=== PATIENT | male | born 1995 | race Caucasian/White ===

== ENCOUNTER 2016-05-23 11:24 | Emergency (ER) | payer OTHER ==
[~2016-05-23] VITALS: Ht 165.1 cm; Wt 100.0 kg
[2016-05-23 11:26] VITALS: BP 133/93; PULSE 74; RESP 20; TEMP 97.9; O2SAT 97
--- NOTE | 2016-05-23 12:19 | PD ---
HPI Chief Complaint: Psychiatric Symptoms Time Seen by Provider: 13:09 Travel History International Travel<30 days: No Contact w/Intl Traveler<30days: No Traveled to known affect area: No History of Present Illness HPI 20-year-old male presents the emergency Department voluntarily for psychiatric symptoms. Patient is having suicidal ideation. Patient is currently going to school learning residential trade. He has a history of ADHD. He has never been here previously for psychiatric symptoms. Patient is concerned that he may hurt someone as he does tend to get violent when he gets upset. He is also has expressed suicidal ideation but has no specific plan. Patient is currently very calm and cooperative upon arrival. He complains of no medical issues at this time. Patient only takes his meds for ADHD but has no other medical issues. He has no known drug allergies. [facility] Social History Alcohol Use: No Tobacco Use: No Substance Use: No Allergies-Medications (Allergen,Severity, Reaction): Coded Allergies: No Known Allergies (Unverified , 05/23/16) Review of Systems Except as stated in HPI: all other systems reviewed are Neg General / Constitutional: No: Fever Eyes: No: Visual changes HENT: No: Headaches Cardiovascular: No: Chest Pain or Discomfort Respiratory: No: Shortness of Breath Gastrointestinal: No: Abdominal Pain Genitourinary: No: Dysuria Musculoskeletal: No: Pain Skin: No Rash Neurologic: No: Weakness Psychiatric: Positive: Suicidal Ideations, No: Depression Endocrine: No: Polydipsia Hematologic/Lymphatic: No: Easy Bruising Physical Exam Narrative GENERAL: Patient appears in no acute distress. He is very pleasant and cooperative. SKIN: Warm and dry. Normal color. Normal turgor. HEAD: Atraumatic. Normocephalic. EYES: Pupils equal and round. No scleral icterus. No injection or drainage. ENT: No nasal bleeding or discharge. Mucous membranes pink and moist. Pharynx is clear. Airway is patent. NECK: Trachea midline. Neck is supple nontender. CARDIOVASCULAR: Regular rate and rhythm. RESPIRATORY: No accessory muscle use. Clear to auscultation. Breath sounds equal bilaterally. MUSCULOSKELETAL: Extremities without clubbing, cyanosis, or edema. No obvious deformities. NEUROLOGICAL: Awake and alert. No obvious cranial nerve deficits. Motor grossly within normal limits. Five out of 5 muscle strength in the arms and legs. Normal speech. PSYCHIATRIC: Appropriate mood and affect; insight and judgment normal. Data Data Last Documented VS Vital Signs Date Time Temp Pulse Resp B/P Pulse Ox O2 Delivery O2 Flow Rate FiO2 05/23/16 11:26 97.9 74 20 133/93 97 Room Air Orders Complete Blood Count With Diff (05/23/16 12:26) Comprehensive Metabolic Panel (05/23/16 12:26) Psych Screen (05/23/16 12:26) Drug Screen, Random Urine (05/23/16 12:26) Diet Regular Basic (05/23/16 Lunch) MDM Medical Decision Making Medical Screen Exam Complete: Yes Emergency Medical Condition: Yes Differential Diagnosis Suicidal ideation. History ADHD. Depression. Need for medical clearance for psychiatric evaluation. Narrative Course Patient is medically stable at time of exam. Psychiatric labs are ordered per protocol. Patient is medically cleared for psychiatric evaluation. Diagnosis Primary Impression: Suicidal ideation Additional Impression: Medical clearance for psychiatric admission Condition: Stable Nael Dowling May 23, 2016 12:19
[2016-05-23 14:37] LABS: AUTOMATED NEUTROPHIL # 7.6 TH/MM3 (1.8-7.7); BASOPHIL # 0.1 TH/MM3 (0-0.2); BASOPHIL % 0.7 % (0.0-2.0); EOSINOPHIL # 0.2 TH/MM3 (0-0.4); EOSINOPHIL % 1.5 % (0.0-4.0); HEMATOCRIT 40.4 % (39.0-51.0); HEMO FLAGS DIFF FINAL; LYMPH % 26.6 % (9.0-44.0); LYMPHOCYTE # 3.2 TH/MM3 (1.0-4.8); MEAN CELL VOLUME 81.2 FL (80.0-100.0); MEAN CORPUSCULAR HEMOGLOBIN 27.1 PG (27.0-34.0); MEAN CORPUSCULAR HGB CONC 33.4 % (32.0-36.0); MONO % 8.3 % (0.0-8.0); NEUT % 62.9 % (16.0-70.0); PLATELET COUNT 235 TH/MM3 (150-450); RED BLOOD COUNT 4.97 MIL/MM3 (4.50-5.90); RED CELL DISTRIBUTION WIDTH 13.6 % (11.6-17.2); WHITE BLOOD COUNT 12.1 TH/MM3 (4.0-11.0)
[2016-05-23 14:38] VITALS: BP 125/76; PULSE 81; RESP 18; TEMP 97.6; O2SAT 97
[2016-05-23 14:56] LABS: ALT (GPT) 26 U/L (9-52); ANION GAP 5 MEQ/L (5-15); AST (GOT) 36 U/L (15-39); BICARBONATE 29.6 MEQ/L (21.0-32.0); BLOOD UREA NITROGEN 9 MG/DL (7-18); CHLORIDE 102 MEQ/L (98-107); GLOMERULAR FILTRATION RATE 129 ML/MIN (>89); SODIUM (NA) 137 MEQ/L (136-145)
[2016-05-23 14:57] LABS: POTASSIUM 4.2 MEQ/L (3.5-5.1)
[2016-05-23 14:58] LABS: ALKALINE PHOSPHATASE 114 U/L (45-117); TOTAL BILIRUBIN ADULT 0.4 MG/DL (0.2-1.0)
[2016-05-23 15:15] VITALS: BP 125/76; PULSE 81; RESP 18; O2SAT 97
[2016-05-23 15:42] LABS: AMPHETAMINE, URINE NEG (NEG); BARBITURATES, URINE NEG (NEG); COCAINE, URINE NEG (NEG)
--- NOTE | 2016-05-23 16:19 | PD ---
History of Present Illness Chief Complaint: Psychiatric Symptoms Time Seen by Provider: 16:00 Travel History International Travel<30 Days: No Contact w/Intl Traveler<30days: No Known affected area: No Legal Status Legal Status: Voluntary History of Present Illness: No History of Present Illness HPI 20-year-old male with hx of ADHD, bipolar disorder who presents the emergency Department voluntarily for psychiatric symptoms. As per chief complaint he comes in for evaluation of suicidal ideation. He has not verbalized a plan. As per EMR review this is his [place] contact with [facility] de[facility]. There is no substance use. The patient is monitored in J pod. He is awake, alert, calm and engaging. He is pleasant on approach. speech is clear and logical. There is no evidence of any thought process or content disturbance. mood is anxious at this time and he is expressing that this environment is anxiety producing for him. He is currently denying any suicidal or homicidal ideation, intent or plan. He is not able to elaborate on any current stressors. He reports medication compliance. he is requesting discharge and states " I feel better now". He reports he is sleeping well and eating well. Met with patient's mother with the patient's verbal consent. She reports that 2 days ago he gave her a small pocket knife and told her to keep it safe for hiom. She also reports that he has not been medication compliance in the [ast few weeks. he has an appointment with his psychiatrist Dr. Hammonds tomorrow. She feels comfortable if he were to be discharged. [facility] Past Medical History ADHD: Yes Diminished Hearing: No Tetanus Vaccination: Unknown Past Surgical History Surgical History: No Previous Surgery Psychiatric History Psychiatric History Hx Psychiatric Treatment: No [facility] Has been receiving medication for ADHD since age 4 years. History of Inpatient Treatment: No Guns or firearms in home: No Social History Single male. Lives with mother and younger siblings. Hx Alcohol Use: No Hx Tobacco Use: No Hx Substance Use: No Hx of Substance Use Treatment: No Family Psychiatric History Negative Allergies-Medications (Allergen,Severity, Reaction): Coded Allergies: No Known Allergies (Unverified , 05/23/16) Review of Systems Constitutional: DENIES: Diaphoretic episodes, Fatigue, Fever, Weight gain, Weight loss, Chills, Dizziness, Change in appetite, Night Sweats Psychiatric: COMPLAINS OF: Anxiety Exam Alert: Yes Letcher: Person (ox4) Mood: Anxious Affect: Euthymic Speech: Clear, Logical Eye Contact: Normal Memory Intact: Comment (no impairmetn) Hallucinations: Other (negative) Delusions: No Suicidal: Ideation (deneis any ) Homicidal: Ideation (deneis any) Insight/Judgement fair, fair [facility] Medical Decision Making Medical Record Reviewed: Yes Assessment/Plan Cleared from psychiatry for discharge. Does not meet criteria for inpatient treatment and does not present an imminent risk to self or others. Follow up tomorrow with outpatient psychiatrist Orders Complete Blood Count With Diff (05/23/16 12:26) Comprehensive Metabolic Panel (05/23/16 12:26) Psych Screen (05/23/16 12:26) Drug Screen, Random Urine (05/23/16 12:26) Diet Regular Basic (05/23/16 Lunch) Diet Regular Basic (05/23/16 Dinner) Results Vital Signs Date Time Temp Pulse Resp B/P Pulse Ox O2 Delivery O2 Flow Rate FiO2 05/23/16 15:15 81 18 125/76 97 Room Air 05/23/16 14:38 97.6 81 18 125/76 97 Room Air 05/23/16 11:26 97.9 74 20 133/93 97 Room Air Laboratory Tests Test 05/23/16 05/23/16 14:10 14:15 White Blood Count 12.1 Red Blood Count 4.97 Hemoglobin 13.5 Hematocrit 40.4 Mean Corpuscular Volume 81.2 Mean Corpuscular Hemoglobin 27.1 Mean Corpuscular Hemoglobin 33.4 Concent Red Cell Distribution Width 13.6 Platelet Count 235 Mean Platelet Volume 10.9 Neutrophils (%) (Auto) 62.9 Lymphocytes (%) (Auto) 26.6 Monocytes (%) (Auto) 8.3 Eosinophils (%) (Auto) 1.5 Basophils (%) (Auto) 0.7 Neutrophils # (Auto) 7.6 Lymphocytes # (Auto) 3.2 Monocytes # (Auto) 1.0 Eosinophils # (Auto) 0.2 Basophils # (Auto) 0.1 CBC Comment DIFF FINAL Differential Comment Sodium Level 137 Potassium Level 4.2 Chloride Level 102 Carbon Dioxide Level 29.6 Anion Gap 5 Blood Urea Nitrogen 9 Creatinine 0.77 Estimat Glomerular Filtration 129 Rate Random Glucose 124 Calcium Level 9.6 Total Bilirubin 0.4 Aspartate Amino Transf 36 (AST/SGOT) Alanine Aminotransferase 26 (ALT/SGPT) Alkaline Phosphatase 114 Total Protein 8.2 Albumin 3.9 Urine Opiates Screen NEG Urine Barbiturates Screen NEG Urine Amphetamines Screen NEG Urine Benzodiazepines Screen NEG Urine Cocaine Screen NEG Urine Cannabinoids Screen NEG Diagnosis Primary Impression: ADHD (attention deficit hyperactivity disorder) Ruled Out: Suicidal ideation Psychiatrically Cleared: Yes Med/ Other Pt Specific Info: No Change to Meds Disposition: 01 DISCHARGE HOME Condition: Stable Problem Qualifiers Primary Impression: ADHD (attention deficit hyperactivity disorder) Qualified Code: 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
== END 2016-05-23 16:48 | disposition home or self-care (01) ==
LOC: NEPJ 11:24
DX: R45.851 Suicidal ideations (principal); F90.9 Attention-deficit hyperactivity disorder, unspecified type; F31.9 Bipolar disorder, unspecified
CPT/HCPCS: 80053; 80307; 85025; 99284